=== PATIENT | female | born 1950 | race Caucasian/White ===

== ENCOUNTER → 2017-04-11 | Day surgery (SDC) | payer MEDICARE, OTHER ==
[~2017-04-11] VITALS: Ht 160 cm; Wt 77.5 kg
[2017-04-11] VITALS (7 sets, daily range): BP systolic 108–134; BP diastolic 62–89; PULSE 56–70; RESP 15–24; O2SAT 99–100
[~2017-04-11] MED LIST: ASPI81TA3 PO; Atropine 0.4 mg/mL Inj IVPUSH PRN; BISO10TA PO; Bupivacaine-MPF 0.5% 30 mL Inj INFILTRATE ONE; CeFAZolin 2 Gm/50 mL D5W Duplex Bag IV ONE; CeFAZolin Inj 2 GM in IV Premix 1 EACH IV ONE; Clindamycin 600 mg/50 mL D5W Premix IV ONE; Clindamycin Inj 600 MG in IV Premix 1 EACH IV ONE; DENO60DI SQ; EPHEDrine Sulfate 50 mg/mL Inj IVPUSH PRN; ESOM40CA41 PO; HYDR12.55 PO; HYDROmorphone 1 mg/mL Inj IVPUSH PRN; KLO5T PO; LISI40TA PO; Labetalol 5 mg/mL 20 mL Inj IV PRN; Lactated Ringer's 1,000 ML IV SCH; Lactated Ringer's 500 ML IV PRN; MULT1CAP33 PO; MetoCLOpramide 5 mg/mL 2 mL Inj IVPUSH PRN; NITR0.4T6 SL; OMEG100T PO; Ondansetron 2 mg/mL 2 mL Inj IVPUSH PRN; POTA10TA7 PO; Phenylephrine 10,000 mCg/mL Inj IVPUSH PRN; ROSU20TA27 PO; fentaNYL-PF 50 mCg/mL 2 mL Inj IVPUSH PRN
[2017-04-11] MEDS: Lactated Ringer's 1,000 ML IV SCH ×2 (05:37→07:25)
--- NOTE | 2017-04-11 07:48 | PCM.HPANE ---
Patient Data Surgeon Admitting Provider: Attending Provider:Jared Victoria DPM Primary Care Physician:Paige Other Provider:Elia Jean Anesthesia Reason for Visit Dysplastic Nevus Left Foot Ht/WT & BMI Height (Feet): 5 Height (Inches): 3.00 Weight (Kilograms): 77.5 Body Mass Index 30.00 Allergies Coded Allergies: paroxetine (Verified Allergy, Intermediate, Rash, 04/07/17) Allergies pt states plavix allergy (itching) Possible PCN allergy...pt. denies Pt. denies any other allergy, including zofran Past Anesthesia History Anesthesia History: Denies:: Abnormal Airway, Anesthesia Reactions (has had A- fib when coming out ot anesthesia), Difficult Intubation, Fam Anesthesia Reaction, Fam Malignant Hypertherm, Malignant Hyperthermia Diabetes History Hx Diabetes?: No MRSA MRSA: No Medications Blood Thinner: Aspirin Last Dose Blood Thinner: Apr 06, 2017 Hypertension Medication: Yes (Lisinopril, Biscolprolol) Home Meds Incl Beta Alice: Yes (Bisoprolol 100mg) Date Beta Alice Taken: Apr 11, 2017 Time Beta Alice Taken: 0400 Reported Medications Denosumab (Prolia)60 Mg/1 Ml Syringe1 Mg SQ 04/07/17 [place]-3 Fatty Acids ([place]-3)100 Mg Tab.cwcq015 Mg PO 04/07/17 Multivitamin (Multivitamins)1 Each Capsule1 Each PO 04/07/17 Rosuvastatin Calcium 20 Mg Fbhpyo47 Mg PO DAILY 04/07/17 Nitroglycerin SL 0.4 Mg Tab.subl0.4 Mg SL 04/07/17 Esomeprazole Magnesium (Nexium)40 Mg Capsule.dr40 Mg PO DAILY Ref 0 04/07/17 Lisinopril 40 Mg Zhrbst70 Mg PO DAILY 30 Days Ref 0 04/07/17 Potassium Chloride ER (Klor-Con 10)10 Meq Liqwen15 Meq PO DAILY Ref 0 04/07/17 Hydrochlorothiazide 12.5 Mg Nqibfc44.5 Mg PO DAILY 30 Days Ref 0 04/07/17 Clonazepam 0.5 Mg Tablet0.5 Mg PO DAILY PRN For Anxiety Ref 0 04/07/17 Bisoprolol Fumarate 10 Mg Bnzqai20 Mg PO DAILY 04/07/17 Aspirin Chew 81 Mg Chew81 Mg PO DAILY Ref 0 04/07/17 Discontinued Reported Medications Denosumab (Prolia)60 Mg/1 Ml Slopudf91 Mg SQ every 6 months 04/07/17 Hydrochlorothiazide 12.5 Mg Kbzsiuu03.5 Mg PO DAILY 30 Days Ref 0 04/07/17 History History of ENT Problems?: Yes HEENT History: Positive for:: Dysphagia (At times) Denies:: Abnormal Airway Cataracts Difficult Intubation Glaucoma Hearing Problem Sinus Problem TMJ Denture Type: None Teeth Condition: Within Normal Limits Hx of Heart Problems?: Yes Cardiovascular History: Positive for:: Cardiac Surgery (2009 stent [facility]) Coronary Artery Disease Hypertension Denies:: Abdominal Aortic Aneurism Atrial Fibrillation Chest Pain Congestive Heart Failure Heart Murmur Irregular Heartbeat Pacemaker Other History/Comments No CP; Greater than 4 mets Hx of Respiratory Problem?: No Respiratory History: Denies:: Use of C-PAP Machine Use of Inhalers / NEBS Hx Neurologic Problems?: No Neurological History: Denies:: Alzheimer's Disease CVA Dementia Dizziness Headaches Parkinson's Disease Seizures TIA Hx of GI Problems?: No Hx of Problems?: No Genitourinary History: Denies:: HX of Hemodialysis Skin History: Denies:: History Skin Disorders? Pressure Ulcers Hx Musculoskeletal Problems?: Yes Musculoskeletal History: Positive for:: Back Injury (weakness) Denies:: Degenerative Joint Fibromyalgia Joint Replacement Musculoskeletal Trauma Myasthenia Gravis Osteoarthritis Rheumatoid Arthritis Systemic Lupus Hx of Psycho/Social Problems?: No Hx Surgeries?: Yes (back surgery) Other History: Positive for:: Hospitalization (2014 back surgery, [facility]) Denies:: Cancer Thyroid Disease History Blood Transfusions: Positive for:: Accept Blood Products? Denies:: Blood Transfusions Hx Diabetes: No Hx Alcohol Use: NoHx Substance Use: No Stop/Bang S-Snoring: Do You Snore Loudly: No T-Tired: feel tired, fatigued: No O-Obsered: Observed not breath: No P-Blood Pressure: treated: Yes B- Body Mass Index > 35 kg/m2: No A- Age over 50: Yes N- Neck Large Circumference: No G- Gender Male: No JACK Total Score: 2 Risk Assessment Category Category 1A: Patient has history of documented sleep apnea, and HAS NOT received any narcotic, sedative or anesthesia administration during this stay. Category 1B: Patient has history of documented sleep apnea, and HAS received any narcotic , sedative or anesthesia administration during this stay Category 2: Patient has SUSPECTED Obstructive Sleep Apnea, and HAS received any narcotic , sedative or anesthesia administration during this stay. Category 3: Patient has SUSPECTED Obstructive Sleep Apnea and HAS NOT received narcotic, sedative or anesthesia administration during this stay. Category 4: Outpatient in Procedural Areas with known sleep apnea or who screen positive for High Risk via the STOP/BANG questionnaire. Exam Exam Vital Signs Vital Signs Date Time Temp Pulse Resp B/P Pulse Ox O2 Delivery O2 Flow Rate FiO2 04/11/17 06:08 36.4 70 16 134/89 99 Room Air General Appearance: Alert, Oriented X3 HEENT/AIRWAY: MP 3, Neck Movement (FROM) Lungs: Clear to Auscultation, Clear to Percussion Heart: Exam Unremarkable, Regular Rate/Rhythm Meds/Labs/Diagnostics Admission Meds Current Medications Lactated Ringer's (Lr) 1,000 ml @ 120 mls/hr Q8H20M IV Last administered on t 05:37; Start 04/11/17 at 05:00; Stop 04/11/17 at 13:19 Plan Impression Patient chart reviewed, patient interviewed and anesthestic plan with risks, benefits, and alternatives discussed, and informed consent obtained. ASA Physical Status: ASA2 Mod Systemic Disease Anesthetic Plan: MAC Bene/Risks/Altern/Consents: Yes HP Complete Prior to Induction: Yes Kang Winn MD Apr 11, 2017 07:12
--- NOTE | 2017-04-11 08:35 | PCM.PODPO ---
Podiatry Operative Report Date of Service: Apr 11, 2017 Date of Service Apr 11, 2017 Pre Operative Diagnosis Dysplastic nevus left second toe Post Operative Diagnosis Same as preoperative diagnoses Procedure Full-thickness excision of dysplastic nevus/soft tissue lesion left second digit with application of autograft Surgeon Surgeon: Jared Victoria DPM Assistants: None Indication for Procedure Irregular soft tissue lesion of the left second toe Findings Irregularly-shaped soft tissue lesion of the left second lateral toe with mild hyperpigmentation Details of Procedure Patient was identified in the preoperative holding area. All preoperative comorbidities and allergies were identified and thoroughly discussed. The patient was transported into the operating room and placed on the operating room table in the normal supine position. The patient was then prepped and draped in the normal aseptic technique. A preoperative block consisting of 10 mL half percent Marcaine plain was given to the base of the left second and third toe as well as the left superficial sinus tarsi. The patient was placed under Mac anesthesia by the anesthesia service. A preoperative timeout was performed. Attention was first paid to the soft tissue lesion of the lateral aspect of left second digit. An approximately 2 cm elliptical incision was made surrounding the soft tissue lesion taking a clean margin of approximately 2 mm on each side. 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 The soft tissue lesion was excised including subcutaneous tissue taking care not to insult underlying neurovascular structures. The soft tissue lesion was sent for histologic analysis. This wound was ankle was a flush with large amounts of normal saline. Number 4. 0 nylon suture was utilized to close the medial aspect of the left third toe at the area of the resection of her partial syndactyly. Attention was then paid to the soft tissue overlying the sinus tarsi. A pinch graft was then taken approximately 2.2 cm x 1 cm in width and an elliptical shape. This skin graft was then carefully placed within the deficit of the left lateral second toe and sutured into place utilizing number 4. 0 nylon suture. The graft site was copiously flushed with large amounts of normal saline and primarily closed utilizing number 3. 0 nylon suture in a simple suture-type fashion. These wounds were then dressed with Xeroform sterile 4 x 4 gauze Anh Kerlix and a minimally compressive Adarsh bandage. No competitions occur during this procedure. The patient was awoken by anesthesia and transported out of the operating room. Grafts, Implants: Other (left foot autograft) Complications There were no periprocedural complications identified. Condition Stable Anesthetic Administered: MAC Catheters: None Output, Estimated Blood Loss: 10 Blood Admin during surgery: No Surgical Cast or Splint: None Surgical Specimen Removed: Yes Specimen sent to Pathology: Yes Surgical Specimen description: Soft tissue lesion of the left lateral second toe Post Operative Plan Ice and elevate left foot, no ice is to be applied to the left distal forefoot Ice should be applied to the left ankle or posterior knee Keep dressing clean dry and intact Discharged to home when stable Partial weightbearing to the left heel Contact office with any questions or concerns regarding care Follow-up in 1 week Jared Victoria DPM Apr 11, 2017 08:35
--- NOTE | 2017-04-11 09:03 | PCM.ANEP1 ---
Post Anesthesia PACU Phase 1 Assessment Vital Signs Vital Signs Date Time Temp Pulse Resp B/P Pulse Ox O2 Delivery O2 Flow Rate FiO2 04/11/17 08:54 36.4 61 16 113/62 100 Room Air 04/11/17 08:45 36.1 62 15 109/65 99 Room Air 04/11/17 08:40 62 20 114/63 100 Room Air 04/11/17 08:35 61 24 108/67 100 Room Air 04/11/17 08:30 36.4 63 18 113/70 100 Simple Mask 8 04/11/17 06:08 36.4 70 16 134/89 99 Room Air Anesthetic Administered: MAC Level of Alertness: Awake, talking UREÑA's with Equal Strength: Yes Pain: No Nausea or Vomiting: No CV Function & Hydration Stable: Yes Airway Device: Lungs: Clear to Auscultation, Clear to Percussion PACU Phase 2 Assessment Complications: No Follow up Care: No Patient Instructions Provided: N/A Kang Winn MD Apr 11, 2017 09:03
--- NOTE | 2017-04-16 14:58 | PATH ---
SURGICAL PATHOLOGY Attending Physician:Jared Victoria, CASE STATUS: Signed Out PATIENT NAME: JADEN SONI PID: [id number] : 1950 DATE COLLECTED:04/11/2017 21:49 SPECIMEN: Soft Tissue Mass, Biopsy CLINICAL HISTORY: DYSPLASTIC NEVUS LEFT FOOT, EXCISION 1). 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 PRIOR BIOPSY SITE CHANGES IDENTIFIED. ICD10 code:L90.5 D22.72 [facility], 04/16/2017 NOTE: The prior biopsy is not on record in our files. This case has been reviewed by Dr. Alcantara, dermatopathologist, and has been reviewed and signed out by Dr. Albertina Baltazar. GROSS DESCRIPTION: The specimen is received in one formalin filled container labeled with the patient's name, sublabeled "left second toe soft tissue lesion" and consists of a kumar-santos ovoid piece of skin which measures 1.1 x 0.6 0.3 CM. Centrally located on the epidermal surface is a 0.5 x 0.2 CM santos-brown mottled area. The surgical margin is inked blue, sectioned into 4 pieces and entirely submitted in one cassette. 04/11/2017DC MICRO DESCRIPTION: See diagnosis. ICD-9 CODES: CPT CODES: 1: 61112 Electronically Signed Out Angelia Baltazar M.D.,[facility] [address], [place] [address] Technical component performed at [facility], [address], [place], [address]
== END | disposition home or self-care (01) ==
LOC: SAS 05:40
PROVIDERS: ATTEND Podiatrist Foot & Ankle Surgery
DX: D22.72 Melanocytic nevi of left lower limb, including hip (principal); I10 Essential (primary) hypertension; R13.10 Dysphagia, unspecified; I25.10 Atherosclerotic heart disease of native coronary artery without angina pectoris; Z79.82 Long term (current) use of aspirin; Z79.899 Other long term (current) drug therapy